=== PATIENT | male | born 1965 | race Caucasian/White ===

== ENCOUNTER 2021-04-03 20:44 | Emergency (ER) | payer MEDICAID, OTHER ==
[~2021-04-03] VITALS: Ht 177.8 cm; Wt 95.3 kg
[2021-04-03 20:45] VITALS: BP 124/88
== END 2021-04-03 21:30 | disposition left against medical advice (07) ==
LOC: ER 20:48
DX: G89.29 Other chronic pain (principal); M54.9 Dorsalgia, unspecified; Z53.21 Procedure and treatment not carried out due to patient leaving prior to being seen by health care provider